=== PATIENT | female | born 1970 ===

== ENCOUNTER 2021-06-19 17:56 | Inpatient (IN) ==
[2021-06-19] MEDS ORDERED: ONDANSETRON 4 MG/2 ML VIAL IV STA (18:12)
[2021-06-19] MEDS ORDERED: HYDROmorphone 1 MG/1 ML SYRINGE IV STA (18:12)
[2021-06-19] MEDS ORDERED: SODIUM CHLORIDE 0.9% 1,000 ML IV STA ×2 (18:12→20:54)
[2021-06-19 18:58] LABS: Basophils # 0.1 10*3/uL (0.0-0.2); Basophils % 0.3 % (0.0-0.8); Eosinophils # 0.1 10*3/uL (0.0-0.87); Eosinophils % 0.3 % (0.00-10.9); Hematocrit 24.6 VOL% (35.7-47.0); Hemoglobin 7.4 GM/DL (12.0-16.0); Immature Granulocytes % 1.4 %; Lymphocytes # 1.2 10*3/uL (1.4-4.0); Lymphocytes % 5.8 % (21.3-54.2); Mean Corpuscular HGB Conc 30.1 GM/DL (32-36); Mean Corpuscular Volume 96.5 FL (87-102); Mean Platelet Volume 8.4 FL (9.6-12.0); Neutrophils % 87.2 % (38.7-73.9); Platelet Count 525 T/CUMM (130-400); Red Blood Count 2.55 MC/CUMM (3.8-5.5); Red Cell Distribution Width 15.4 % (9.3-17.3); White Blood Count 20.9 T/CUMM (4-12)
[2021-06-19 19:23] LABS: Lymphocytes 6 % (20-55); Platelet Estimate Increased; Segmented Neutrophils 89 % (50-85); Total Cells Counted 100
[2021-06-19 19:27] LABS: Alanine Aminotransferase 10 U/L (13-56); Albumin 2.1 G/DL (3.4-5.0); Alkaline Phosphatase 118 U/L (45-117); Aspartate Amino Transferase 14 U/L (0-37); Bilirubin,Total < 0.39 MG/DL (0.20-1.00); Blood Urea Nitrogen 104 MG/DL (7-18); Calcium 9.2 MG/DL (8.5-10.1); Carbon Dioxide 14 MMOL/L (21-32); Estimated Glom Filtration Rate 4 ML/MIN; Glucose 89 MG/DL (74-106); Osmolality,Calculated 291.8 MOS/KG (273-304); Potassium 5.7 MMOL/L (3.5-5.1); Sodium 130 MMOL/L (136-145); Total Protein 8.6 G/DL (6.4-8.2)
[2021-06-19] MEDS ORDERED: DEXTROSE 10% 250 ML BAG IV PRN (22:13)
[2021-06-19] MEDS ORDERED: ACETAMINOPHEN 325 MG TABLET PO PRN (22:13)
[2021-06-19] MEDS ORDERED: GLUCAGON 1 MG VIAL IM PRN (22:13)
[2021-06-19] MEDS ORDERED: hydrALAZINE 20 MG/1 ML VIAL IV PRN (22:13)
[2021-06-19] MEDS ORDERED: ONDANSETRON 4 MG/2 ML VIAL IV PRN (22:13)
[2021-06-19] MEDS: SODIUM POLYSTYRENE SULFATE 15 GM/60 ML BOTTLE PO SCH (23:05)
[2021-06-19 23:47] LABS: Mucus,Urine Occasional /LPF (Occasional); RBC,Urine 12 /HPF (0-4); Squamous Epithelial Cell,Urine Occasional /HPF (0-10); Urine Appearance SL CLOUDY (Clear); Urine Color Yellow (Yellow)
[2021-06-19 23:48] LABS: Bilirubin,Urine Negative (Negative); Blood, Urine Moderate mg/dL (Negative); Glucose,Urine (UA) Negative (Negative); Ketones,Urine Negative (Negative); Nitrite,Urine Negative (Negative); Protein,Urine 30 mg/dL (Negative); Urine Urobilinogen 0.2 eU/dL (<2.0)
[2021-06-20] MEDS ORDERED: VANCOMYCIN INJ 1,000 MG in SODIUM CHLORIDE 0.9% 250 ML IV PRN (00:30)
[2021-06-20] MEDS: SODIUM POLYSTYRENE SULFATE 15 GM/60 ML BOTTLE PO SCH (00:31)
[2021-06-20] MEDS: HYDROmorphone 1 MG/1 ML SYRINGE IV PRN ×2 (00:50→19:45)
[2021-06-20] MEDS: PIPERACILLIN/TAZOBACTAM 3,375 MG in SODIUM CHLORIDE 0.9% 100 ML IV SCH ×2 (00:59→13:40)
[2021-06-20 01:48] LABS: Basophils # 0.1 10*3/uL (0.0-0.2); Basophils % 0.3 % (0.0-0.8); Eosinophils # 0.1 10*3/uL (0.0-0.87); Eosinophils % 0.4 % (0.00-10.9); Hematocrit 23.1 VOL% (35.7-47.0); Immature Granulocytes % 1.6 %; Immature Granulocytes Absolute 0.29 #; Lymphocytes % 5.3 % (21.3-54.2); Mean Corpuscular HGB Conc 30.3 GM/DL (32-36); Mean Corpuscular Volume 96.7 FL (87-102); Mean Platelet Volume 8.3 FL (9.6-12.0); Monocytes % 5.9 % (1.7-12.7); Neutrophils % 86.5 % (38.7-73.9); Platelet Count 478 T/CUMM (130-400); Red Blood Count 2.39 MC/CUMM (3.8-5.5); Red Cell Distribution Width 15.5 % (9.3-17.3); White Blood Count 18.3 T/CUMM (4-12)
[2021-06-20] MEDS: SODIUM BICARB INJ 150 MEQ in DEXTROSE 5% 1,000 ML IV SCH (02:13)
[2021-06-20 02:37] LABS: Calcium 8.8 MG/DL (8.5-10.1); Osmolality,Calculated 304.8 MOS/KG (273-304)
[2021-06-20 02:48] LABS: Potassium 6.3 MMOL/L (3.5-5.1)
[2021-06-20] MEDS ORDERED: SODIUM ZIRCONIUM CYCLOSILICATE 10 GM PACK PO STA (03:15)
[2021-06-20] MEDS ORDERED: INSULIN REGULAR 10 UNIT, CALCIUM GLUCONATE 1,000 MG in DEXTROSE 10% 250 ML IV STA (03:15)
[2021-06-20] MEDS ORDERED: VANCOMYCIN INJ 1,000 MG in SODIUM CHLORIDE 0.9% 250 ML IV ONE (05:00)
[2021-06-20 09:19] LABS: Calcium 8.9 MG/DL (8.5-10.1); Osmolality,Calculated 305.7 MOS/KG (273-304); Potassium 4.5 MMOL/L (3.5-5.1)
[2021-06-20 10:07] LABS: INR 1.1
[2021-06-20] MEDS ORDERED: SODIUM CHLORIDE 0.9% 1,000 ML IV PRN (10:24)
[2021-06-20] MEDS ORDERED: DIAZEPAM 5 MG TABLET PO ONE (11:00)
[2021-06-20] MEDS: PANTOPRAZOLE 40 MG TABLET PO SCH (11:01)
[2021-06-20] MEDS ORDERED: MIDAZOLAM 2 MG/2 ML VIAL IV ONE (11:22)
[2021-06-20] MEDS: fentaNYL 100 MCG/2 ML VIAL IV ONE (12:02)
[2021-06-20] MEDS ORDERED: HEPARIN 5,000 UNIT/1 ML VIAL SUBCUT SCH (21:00)
[2021-06-20 21:08] LABS: Hematocrit 25.5 VOL% (35.7-47.0); Hemoglobin 8.2 GM/DL (12.0-16.0)
[2021-06-21] MEDS: SODIUM BICARB INJ 150 MEQ in DEXTROSE 5% 1,000 ML IV SCH ×4 (01:19→23:16)
[2021-06-21] MEDS: PIPERACILLIN/TAZOBACTAM 3,375 MG in SODIUM CHLORIDE 0.9% 100 ML IV SCH ×2 (01:19→12:39)
[2021-06-21] MEDS: HYDROmorphone 1 MG/1 ML SYRINGE IV PRN (03:27)
[2021-06-21 05:45] LABS: Basophils % 0.1 % (0.0-0.8); Eosinophils # 0.1 10*3/uL (0.0-0.87); Eosinophils % 0.4 % (0.00-10.9); Hematocrit 25.2 VOL% (35.7-47.0); Hemoglobin 8.1 GM/DL (12.0-16.0); Immature Granulocytes % 1.7 %; Immature Granulocytes Absolute 0.24 #; Lymphocytes # 0.7 10*3/uL (1.4-4.0); Lymphocytes % 5.2 % (21.3-54.2); Mean Corpuscular HGB Conc 32.1 GM/DL (32-36); Mean Corpuscular Volume 88.4 FL (87-102); Mean Platelet Volume 8.5 FL (9.6-12.0); Monocytes % 5.1 % (1.7-12.7); Neutrophils % 87.5 % (38.7-73.9); Platelet Count 453 T/CUMM (130-400); Red Blood Count 2.85 MC/CUMM (3.8-5.5); Red Cell Distribution Width 15.8 % (9.3-17.3); White Blood Count 14.3 T/CUMM (4-12)
[2021-06-21 06:03] LABS: Osmolality,Calculated 303.7 MOS/KG (273-304); Potassium 3.6 MMOL/L (3.5-5.1)
[2021-06-21] MEDS: PANTOPRAZOLE 40 MG TABLET PO SCH (09:18)
[2021-06-21] MEDS ORDERED: PROMETHAZINE INJ 25 MG in SODIUM CHLORIDE 0.9% 50 ML IV PRN (20:44)
[2021-06-21] MEDS: LACTULOSE 20 GM/30 ML UDCUP PO PRN (20:51)
[2021-06-22] MEDS: PIPERACILLIN/TAZOBACTAM 3,375 MG in SODIUM CHLORIDE 0.9% 100 ML IV SCH ×2 (00:37→17:05)
[2021-06-22 04:40] LABS: Basophils % 0.3 % (0.0-0.8); Eosinophils # 0.1 10*3/uL (0.0-0.87); Eosinophils % 0.6 % (0.00-10.9); Hematocrit 27.4 VOL% (35.7-47.0); Hemoglobin 8.7 GM/DL (12.0-16.0); Immature Granulocytes % 1.3 %; Immature Granulocytes Absolute 0.18 #; Lymphocytes # 1.4 10*3/uL (1.4-4.0); Lymphocytes % 10.3 % (21.3-54.2); Mean Corpuscular HGB Conc 31.8 GM/DL (32-36); Mean Corpuscular Volume 87.5 FL (87-102); Mean Platelet Volume 8.2 FL (9.6-12.0); Monocytes % 7.3 % (1.7-12.7); Neutrophils % 80.2 % (38.7-73.9); Platelet Count 486 T/CUMM (130-400); Red Blood Count 3.13 MC/CUMM (3.8-5.5); Red Cell Distribution Width 15.8 % (9.3-17.3); White Blood Count 13.9 T/CUMM (4-12)
[2021-06-22 05:04] LABS: Calcium 8.5 MG/DL (8.5-10.1); Osmolality,Calculated 296.4 MOS/KG (273-304); Potassium 2.7 MMOL/L (3.5-5.1)
[2021-06-22] MEDS: HYDROmorphone 1 MG/1 ML SYRINGE IV PRN ×4 (05:19→23:01)
[2021-06-22] MEDS ORDERED: POTASSIUM CHLORIDE 20 MEQ TABLET PO PRN (08:01)
[2021-06-22] MEDS ORDERED: POTASSIUM CHLORIDE 20 MEQ TABLET PO ONE ×2 (08:06→10:05)
[2021-06-22] MEDS: PANTOPRAZOLE 40 MG TABLET PO SCH (08:58)
[2021-06-22] MEDS: SODIUM CHLORIDE 0.45% 1,000 ML IV SCH ×2 (10:41→23:48)
[2021-06-23] MEDS: PIPERACILLIN/TAZOBACTAM 3,375 MG in SODIUM CHLORIDE 0.9% 100 ML IV SCH ×2 (02:00→12:32)
[2021-06-23] MEDS: LACTULOSE 20 GM/30 ML UDCUP PO PRN ×2 (02:51→08:43)
[2021-06-23] MEDS: HYDROmorphone 1 MG/1 ML SYRINGE IV PRN (03:42)
[2021-06-23 05:14] LABS: Basophils % 0.2 % (0.0-0.8); Hematocrit 26.2 VOL% (35.7-47.0); Hemoglobin 8.2 GM/DL (12.0-16.0); Immature Granulocytes Absolute 0.22 #; Lymphocytes # 0.9 10*3/uL (1.4-4.0); Lymphocytes % 4.3 % (21.3-54.2); Mean Corpuscular HGB Conc 31.3 GM/DL (32-36); Mean Corpuscular Volume 90.7 FL (87-102); Mean Platelet Volume 8.3 FL (9.6-12.0); Monocytes % 3.4 % (1.7-12.7); Neutrophils % 91.1 % (38.7-73.9); Platelet Count 452 T/CUMM (130-400); Red Blood Count 2.89 MC/CUMM (3.8-5.5); Red Cell Distribution Width 15.9 % (9.3-17.3); White Blood Count 21.1 T/CUMM (4-12)
[2021-06-23 05:36] LABS: Hypochromia 1+; Lymphocytes 3 % (20-55); Segmented Neutrophils 93 % (50-85); Total Cells Counted 100
[2021-06-23 05:37] LABS: Microcytosis 1+
[2021-06-23 05:42] LABS: Calcium 8.6 MG/DL (8.5-10.1); Osmolality,Calculated 287.8 MOS/KG (273-304); Potassium 3.1 MMOL/L (3.5-5.1)
[2021-06-23] MEDS: PANTOPRAZOLE 40 MG TABLET PO SCH (08:43)
[2021-06-23] MEDS: SODIUM CHLORIDE 0.45% 1,000 ML IV SCH ×2 (17:20)
[2021-06-24] MEDS: SODIUM CHLORIDE 0.45% 1,000 ML IV SCH ×3 (02:56→22:41)
[2021-06-24] MEDS: HYDROmorphone 1 MG/1 ML SYRINGE IV PRN ×3 (02:58→10:30)
[2021-06-24 07:18] LABS: Basophils % 0.3 % (0.0-0.8); Calcium 8.4 MG/DL (8.5-10.1); Eosinophils # 0.1 10*3/uL (0.0-0.87); Eosinophils % 0.9 % (0.00-10.9); Hematocrit 25.6 VOL% (35.7-47.0); Hemoglobin 7.9 GM/DL (12.0-16.0); Immature Granulocytes % 1.8 %; Immature Granulocytes Absolute 0.27 #; Lymphocytes % 13.4 % (21.3-54.2); Mean Corpuscular HGB Conc 30.9 GM/DL (32-36); Mean Corpuscular Volume 91.1 FL (87-102); Mean Platelet Volume 8.6 FL (9.6-12.0); Monocytes % 6.9 % (1.7-12.7); Neutrophils % 76.7 % (38.7-73.9); Osmolality,Calculated 287.3 MOS/KG (273-304); Platelet Count 419 T/CUMM (130-400); Potassium 3.1 MMOL/L (3.5-5.1); Red Blood Count 2.81 MC/CUMM (3.8-5.5); Red Cell Distribution Width 15.4 % (9.3-17.3)
[2021-06-24] MEDS: PANTOPRAZOLE 40 MG TABLET PO SCH (08:44)
[2021-06-25] MEDS: HYDROmorphone 1 MG/1 ML SYRINGE IV PRN ×2 (01:08→13:42)
[2021-06-25 05:45] LABS: Basophils # 0.1 10*3/uL (0.0-0.2); Basophils % 0.4 % (0.0-0.8); Eosinophils # 0.3 10*3/uL (0.0-0.87); Eosinophils % 1.4 % (0.00-10.9); Hematocrit 29.8 VOL% (35.7-47.0); Immature Granulocytes % 1.9 %; Immature Granulocytes Absolute 0.35 #; Lymphocytes # 3.2 10*3/uL (1.4-4.0); Lymphocytes % 17.4 % (21.3-54.2); Mean Corpuscular HGB Conc 30.2 GM/DL (32-36); Mean Corpuscular Volume 93.1 FL (87-102); Mean Platelet Volume 8.3 FL (9.6-12.0); Monocytes % 5.8 % (1.7-12.7); Neutrophils % 73.1 % (38.7-73.9); Platelet Count 495 T/CUMM (130-400); White Blood Count 18.5 T/CUMM (4-12)
[2021-06-25 06:00] LABS: Calcium 9.1 MG/DL (8.5-10.1); Osmolality,Calculated 278.7 MOS/KG (273-304); Potassium 2.8 MMOL/L (3.5-5.1)
[2021-06-25] MEDS ORDERED: cefTRIAXone 1,000 MG in SODIUM CHLORIDE 0.9% 100 ML IV ONE (06:00)
[2021-06-25] MEDS: POTASSIUM CHLORIDE RIDER 10 MEQ/100 ML PREMIX IV SCH ×3 (09:00→16:35)
[2021-06-25] MEDS ORDERED: POTASSIUM CHLORIDE 20 MEQ TABLET PO SCH (09:00)
[2021-06-25] MEDS: SODIUM CHLORIDE 0.45% 1,000 ML IV SCH (10:43)
[2021-06-25] MEDS: PANTOPRAZOLE 40 MG TABLET PO SCH (10:49)
[2021-06-25] MEDS ORDERED: LIDOCAINE 2% TOP JELLY 20 ML VIAL INTRAURETH ONE (13:31)
[2021-06-25] MEDS ORDERED: DOXYCYCLINE HYCLATE 100 MG CAPSULE PO SCH (21:00)
[2021-06-26] MEDS: SODIUM CHLORIDE 0.45% 1,000 ML IV SCH ×2 (01:20→12:10)
[2021-06-26] MEDS: HYDROmorphone 1 MG/1 ML SYRINGE IV PRN ×2 (02:35→06:42)
[2021-06-26 06:42] LABS: Basophils % 0.3 % (0.0-0.8); Eosinophils # 0.2 10*3/uL (0.0-0.87); Eosinophils % 1.8 % (0.00-10.9); Hematocrit 26.3 VOL% (35.7-47.0); Hemoglobin 7.9 GM/DL (12.0-16.0); Immature Granulocytes % 1.7 %; Immature Granulocytes Absolute 0.22 #; Lymphocytes # 1.6 10*3/uL (1.4-4.0); Lymphocytes % 12.6 % (21.3-54.2); Mean Corpuscular Volume 94.9 FL (87-102); Mean Platelet Volume 8.9 FL (9.6-12.0); Monocytes % 6.7 % (1.7-12.7); Neutrophils % 76.9 % (38.7-73.9); Platelet Count 373 T/CUMM (130-400); Red Blood Count 2.77 MC/CUMM (3.8-5.5); Red Cell Distribution Width 14.9 % (9.3-17.3)
[2021-06-26 07:00] LABS: Calcium 8.5 MG/DL (8.5-10.1); Osmolality,Calculated 283.4 MOS/KG (273-304); Potassium 2.9 MMOL/L (3.5-5.1)
[2021-06-26] MEDS ORDERED: amLODIPine 5 MG TABLET PO SCH (09:00)
[2021-06-26] MEDS: DOXYCYCLINE HYCLATE 100 MG CAPSULE PO SCH ×2 (09:00→17:05)
[2021-06-26] MEDS: POTASSIUM CHLORIDE 20 MEQ TABLET PO SCH ×3 (09:01→13:04)
[2021-06-26] MEDS: PANTOPRAZOLE 40 MG TABLET PO SCH (09:01)
[2021-06-26] MEDS ORDERED: MAGNESIUM SULF RIDER 2 GM/50 ML PREMIX IV ONE (12:30)
[2021-06-26 15:19] LABS: Calcium 8.3 MG/DL (8.5-10.1); Osmolality,Calculated 280.5 MOS/KG (273-304); Potassium 4.4 MMOL/L (3.5-5.1)
[2021-06-26 16:44] VITALS: BP 133/70
== END 2021-06-26 17:48 | disposition home or self-care (01) | DRG 844 ==
LOC: EDBD → EDUNIT# → N.ED 17:56 → SUATTDRO 22:13 → N.EDINP 22:13 → N.3E 22:53
PROVIDERS: ADMIT Hospitalist; ATTEND Family Medicine

== ENCOUNTER 2021-06-28 00:34 | Observation (INO) ==
[2021-06-28] MEDS ORDERED: GLUCAGON 1 MG VIAL IM PRN (01:30)
[2021-06-28] MEDS ORDERED: MAGNESIUM SULF RIDER 4 GM/100 ML PREMIX IV PRN (01:33)
[2021-06-28] MEDS ORDERED: ACETAMINOPHEN 325 MG TABLET PO PRN (01:33)
[2021-06-28] MEDS ORDERED: POTASSIUM CHLORIDE RIDER 10 MEQ/100 ML PREMIX IV PRN (01:33)
[2021-06-28] MEDS ORDERED: MAGNESIUM SULF RIDER 2 GM/50 ML PREMIX IV PRN (01:33)
[2021-06-28] MEDS ORDERED: ALUMINUM/MAGNES/SIMETH MAX STR 30 ML UDCUP PO PRN (01:33)
[2021-06-28] MEDS ORDERED: ONDANSETRON 4 MG/2 ML VIAL IV PRN (01:33)
[2021-06-28] MEDS ORDERED: POTASSIUM CHLORIDE 20 MEQ TABLET PO PRN (01:33)
[2021-06-28 01:34] LABS: Basophils # 0.1 10*3/uL (0.0-0.2); Basophils % 0.4 % (0.0-0.8); Eosinophils # 0.2 10*3/uL (0.0-0.87); Eosinophils % 1.2 % (0.00-10.9); Hematocrit 27.9 VOL% (35.7-47.0); Hemoglobin 8.3 GM/DL (12.0-16.0); Immature Granulocytes Absolute 0.32 #; Lymphocytes # 1.7 10*3/uL (1.4-4.0); Lymphocytes % 10.2 % (21.3-54.2); Mean Corpuscular HGB Conc 29.7 GM/DL (32-36); Mean Corpuscular Volume 94.9 FL (87-102); Mean Platelet Volume 8.7 FL (9.6-12.0); Monocytes % 6.8 % (1.7-12.7); Neutrophils % 79.4 % (38.7-73.9); Platelet Count 417 T/CUMM (130-400); Red Blood Count 2.94 MC/CUMM (3.8-5.5); Red Cell Distribution Width 15.4 % (9.3-17.3); White Blood Count 16.2 T/CUMM (4-12)
[2021-06-28] MEDS ORDERED: DEXTROSE 10% 250 ML BAG IV PRN (01:43)
[2021-06-28 01:53] LABS: Alanine Aminotransferase 33 U/L (13-56); Albumin 2.2 G/DL (3.4-5.0); Alkaline Phosphatase 118 U/L (45-117); Aspartate Amino Transferase 59 U/L (0-37); Bilirubin,Total < 0.39 MG/DL (0.20-1.00); Blood Urea Nitrogen 23 MG/DL (7-18); Carbon Dioxide 24 MMOL/L (21-32); Estimated Glom Filtration Rate 26 ML/MIN; Glucose 112 MG/DL (74-106); Osmolality,Calculated 281.5 MOS/KG (273-304); Sodium 139 MMOL/L (136-145); Total Protein 8.8 G/DL (6.4-8.2)
[2021-06-28 02:02] LABS: INR 1.1; PT Patient Result 11.8 SECS (10.5-12.0); Partial Thromboplastin Time 31.7 SECS (23.8-32.1)
[2021-06-28] MEDS ORDERED: DOXYCYCLINE HYCLATE 100 MG CAPSULE PO SCH (08:00)
[2021-06-28] MEDS ORDERED: DOCUSATE SODIUM 100 MG CAPSULE PO SCH (09:00)
[2021-06-28] MEDS ORDERED: PANTOPRAZOLE 40 MG TABLET PO SCH (09:00)
[2021-06-28] MEDS ORDERED: amLODIPine 5 MG TABLET PO SCH (09:00)
[2021-06-28] MEDS: INSULIN REGULAR 100 UNIT/ML SUBCUT SCH ×2 (09:27→11:58)
[2021-06-28] MEDS ORDERED: LEVOFLOXACIN INJ 500 MG/100 ML PREMIX IV ONE (09:54)
[2021-06-28] MEDS ORDERED: DIAZEPAM 5 MG TABLET PO ONE (09:54)
[2021-06-28] MEDS ORDERED: fentaNYL 100 MCG/2 ML VIAL IV ONE (09:54)
[2021-06-28] MEDS ORDERED: MIDAZOLAM 2 MG/2 ML VIAL IV ONE (09:54)
[2021-06-28] MEDS ORDERED: SODIUM CHLORIDE 0.45% 1,000 ML IV SCH (10:00)
[2021-06-28 16:34] VITALS: BP 139/82
== END 2021-06-28 17:26 | disposition home or self-care (01) ==
LOC: N.5E 00:34 → N.ED 00:34 → N.5E 02:10
PROVIDERS: ADMIT Hospitalist; ATTEND Hospitalist

== ENCOUNTER 2022-01-31 17:07 | Inpatient (IN) ==
[2022-01-31 20:45] LABS: Basophils % 0.2 % (0.0-0.8); Eosinophils % 0.1 % (0.00-10.9); Hematocrit 29.3 VOL% (35.7-47.0); Hemoglobin 8.9 GM/DL (12.0-16.0); Immature Granulocytes % 2.2 %; Immature Granulocytes Absolute 0.37 #; Lymphocytes % 5.8 % (21.3-54.2); Mean Corpuscular HGB Conc 30.4 GM/DL (32-36); Mean Corpuscular Volume 83.5 FL (87-102); Mean Platelet Volume 9.1 FL (9.6-12.0); Monocytes # 2.1 10*3/uL (0.11-0.8); Neutrophils % 79.7 % (38.7-73.9); Platelet Count 542 T/CUMM (130-400); Red Blood Count 3.51 MC/CUMM (3.8-5.5); Red Cell Distribution Width 17.2 % (9.3-17.3); White Blood Count 17.1 T/CUMM (4-12)
[2022-01-31 21:04] LABS: Albumin 1.7 G/DL (3.4-5.0); Bilirubin,Total 0.6 MG/DL (0.20-1.00); Calcium 7.4 MG/DL (8.5-10.1); Osmolality,Calculated 289.7 MOS/KG (273-304); Potassium 5.5 MMOL/L (3.5-5.1); Total Protein 6.7 G/DL (6.4-8.2)
[2022-01-31 21:32] LABS: Band Neutrophils 13 % (0-10); Lymphocytes 7 % (20-55); Metamyelocytes 1 %; Nucleated Red Blood Cells 1 /100 WBC (0-5); Total Cells Counted 100
[2022-01-31 21:33] LABS: Hypochromia Slight; Platelet Estimate Increased
[2022-01-31 22:10] LABS: Bacteria,Urine Moderate /HPF (Few); Bilirubin,Urine Negative (Negative); Blood, Urine Negative (Negative); Glucose,Urine (UA) Negative (Negative); Ketones,Urine 5 mg/dL (Negative); Mucus,Urine Occasional /LPF (Occasional); Nitrite,Urine Negative (Negative); Protein,Urine 30 mg/dL (Negative); Squamous Epithelial Cell,Urine Occasional /HPF (0-10); Urine Appearance Slightly Hazy (Clear); Urine Color Amber (Yellow); Urine Specific Gravity 1.014 (1.001-1.035)
[2022-01-31] MEDS ORDERED: SODIUM CHLORIDE 0.9% 500 ML IV STA (22:16)
[2022-01-31] MEDS ORDERED: VANCOMYCIN INJ 750 MG in SODIUM CHLORIDE 0.9% 250 ML IV STA (23:39)
[2022-01-31] MEDS ORDERED: PIPERACILLIN/TAZOBACTAM 3,375 MG in SODIUM CHLORIDE 0.9% 100 ML IV STA (23:39)
[2022-01-31] MEDS ORDERED: VANCOMYCIN 1,000 MG VIAL ONE (23:47)
[2022-01-31] MEDS ORDERED: hydrALAZINE 20 MG/1 ML VIAL IV PRN (23:52)
[2022-01-31] MEDS ORDERED: NICOTINE 21 MG/24 HR PATCH TRANSDERM PRN (23:52)
[2022-01-31] MEDS ORDERED: ONDANSETRON 4 MG/2 ML VIAL IV PRN (23:52)
[2022-01-31] MEDS ORDERED: PROMETHAZINE 25 MG/1 ML VIAL IM PRN (23:52)
[2022-01-31] MEDS ORDERED: SODIUM ZIRCONIUM CYCLOSILICATE 10 GM PACK PO ONE (23:53)
[2022-02-01] MEDS ORDERED: VANCOMYCIN INJ 1,500 MG in SODIUM CHLORIDE 0.9% 500 ML IV STA (00:05)
[2022-02-01] MEDS ORDERED: VANCOMYCIN INJ 750 MG in SODIUM CHLORIDE 0.9% 250 ML IV PRN (00:10)
[2022-02-01] MEDS: MORPHINE 2 MG/1 ML SYRINGE IV PRN ×5 (00:42→22:01)
[2022-02-01] MEDS: DEXTROSE 5% NACL 0.9% 1,000 ML IV SCH (03:17)
[2022-02-01 05:30] LABS: Calcium 6.9 MG/DL (8.5-10.1); Potassium 4.9 MMOL/L (3.5-5.1)
[2022-02-01 07:48] LABS: Basophils % 0.1 % (0.0-0.8); Eosinophils % 0.3 % (0.00-10.9); Hematocrit 24.7 VOL% (35.7-47.0); Hemoglobin 7.4 GM/DL (12.0-16.0); Immature Granulocytes % 2.2 %; Lymphocytes # 1.1 10*3/uL (1.4-4.0); Lymphocytes % 8.1 % (21.3-54.2); Mean Corpuscular Volume 86.1 FL (87-102); Mean Platelet Volume 9.6 FL (9.6-12.0); Monocytes # 1.8 10*3/uL (0.11-0.8); Neutrophils % 76.3 % (38.7-73.9); Platelet Count 420 T/CUMM (130-400); Red Blood Count 2.87 MC/CUMM (3.8-5.5); Red Cell Distribution Width 17.3 % (9.3-17.3); White Blood Count 13.7 T/CUMM (4-12)
[2022-02-01 08:32] LABS: Band Neutrophils 8 % (0-10); Eosinophils 1 % (0-10); Hypochromia Slight; Lymphocytes 8 % (20-55); Total Cells Counted 100
[2022-02-01 08:33] LABS: Microcytosis Slight
[2022-02-01] MEDS: PIPERACILLIN/TAZOBACTAM 3,375 MG in SODIUM CHLORIDE 0.9% 100 ML IV SCH ×2 (08:50→17:14)
[2022-02-01] MEDS ORDERED: SODIUM CHLORIDE 0.9% 1,000 ML IV PRN (11:18)
[2022-02-01 13:15] LABS: % Iron Saturation 17.7 % (18-50)
[2022-02-01 13:28] LABS: Folate 6.41 NG/ML (5.38-24.0)
[2022-02-02] MEDS: VANCOMYCIN INJ 750 MG in SODIUM CHLORIDE 0.9% 250 ML IV SCH (00:20)
[2022-02-02] MEDS: PIPERACILLIN/TAZOBACTAM 3,375 MG in SODIUM CHLORIDE 0.9% 100 ML IV SCH ×3 (00:20→15:54)
[2022-02-02] MEDS: DEXTROSE 5% NACL 0.9% 1,000 ML IV SCH ×3 (00:20→16:09)
[2022-02-02] MEDS: MORPHINE 2 MG/1 ML SYRINGE IV PRN ×3 (03:42→12:41)
[2022-02-02 05:53] LABS: Basophils % 0.2 % (0.0-0.8); Eosinophils # 0.1 10*3/uL (0.0-0.87); Eosinophils % 0.3 % (0.00-10.9); Hematocrit 27.4 VOL% (35.7-47.0); Hemoglobin 8.5 GM/DL (12.0-16.0); Immature Granulocytes Absolute 0.44 #; Lymphocytes # 1.1 10*3/uL (1.4-4.0); Lymphocytes % 7.7 % (21.3-54.2); Mean Corpuscular Volume 87.5 FL (87-102); Mean Platelet Volume 8.8 FL (9.6-12.0); Monocytes # 1.7 10*3/uL (0.11-0.8); Monocytes % 11.9 % (1.7-12.7); Neutrophils % 76.9 % (38.7-73.9); Platelet Count 356 T/CUMM (130-400); Red Blood Count 3.13 MC/CUMM (3.8-5.5); Red Cell Distribution Width 16.9 % (9.3-17.3); White Blood Count 14.6 T/CUMM (4-12)
[2022-02-02 06:23] LABS: Calcium 7.4 MG/DL (8.5-10.1); Osmolality,Calculated 296.3 MOS/KG (273-304); Potassium 3.8 MMOL/L (3.5-5.1)
[2022-02-02 07:39] LABS: Band Neutrophils 7 % (0-10); Eosinophils 1 % (0-10); Hypochromia Slight; Lymphocytes 9 % (20-55); Polychromasia Slight; Total Cells Counted 100
[2022-02-02 07:40] LABS: Microcytosis 1+; Platelet Estimate Normal
[2022-02-02] MEDS: FERRIC GLUCONATE COMPLEX 125 MG in SODIUM CHLORIDE 0.9% 100 ML IV SCH (08:48)
[2022-02-02] MEDS: CHOLECALCIFEROL 400 UNIT TABLET PO SCH (08:49)
[2022-02-03] MEDS: PIPERACILLIN/TAZOBACTAM 3,375 MG in SODIUM CHLORIDE 0.9% 100 ML IV SCH ×3 (00:50→15:27)
[2022-02-03] MEDS: VANCOMYCIN INJ 750 MG in SODIUM CHLORIDE 0.9% 250 ML IV SCH (00:50)
[2022-02-03] MEDS: MORPHINE 2 MG/1 ML SYRINGE IV PRN (00:59)
[2022-02-03] MEDS: DEXTROSE 5% NACL 0.9% 1,000 ML IV SCH (05:12)
[2022-02-03 06:11] LABS: Basophils % 0.1 % (0.0-0.8); Eosinophils # 0.1 10*3/uL (0.0-0.87); Eosinophils % 0.6 % (0.00-10.9); Hematocrit 27.2 VOL% (35.7-47.0); Hemoglobin 8.2 GM/DL (12.0-16.0); Immature Granulocytes % 3.1 %; Immature Granulocytes Absolute 0.51 #; Lymphocytes # 1.3 10*3/uL (1.4-4.0); Lymphocytes % 7.7 % (21.3-54.2); Mean Corpuscular HGB Conc 30.1 GM/DL (32-36); Mean Corpuscular Volume 89.5 FL (87-102); Monocytes # 1.7 10*3/uL (0.11-0.8); Neutrophils % 78.5 % (38.7-73.9); Platelet Count 339 T/CUMM (130-400); Red Blood Count 3.04 MC/CUMM (3.8-5.5); Red Cell Distribution Width 17.3 % (9.3-17.3); White Blood Count 16.7 T/CUMM (4-12)
[2022-02-03 06:39] LABS: Band Neutrophils 2 % (0-10); Eosinophils 2 % (0-10); Lymphocytes 5 % (20-55); Total Cells Counted 100
[2022-02-03 06:40] LABS: Hypochromia Slight; Microcytosis Slight; Platelet Estimate Adequate
[2022-02-03 06:53] LABS: Calcium 7.6 MG/DL (8.5-10.1); Osmolality,Calculated 299.7 MOS/KG (273-304)
[2022-02-03] MEDS: FERRIC GLUCONATE COMPLEX 125 MG in SODIUM CHLORIDE 0.9% 100 ML IV SCH (08:55)
[2022-02-03] MEDS: CHOLECALCIFEROL 400 UNIT TABLET PO SCH (10:17)
[2022-02-03] MEDS: ACETAMINOPHEN 325 MG TABLET PO PRN (19:18)
[2022-02-04] MEDS: PIPERACILLIN/TAZOBACTAM 3,375 MG in SODIUM CHLORIDE 0.9% 100 ML IV SCH ×3 (00:27→20:22)
[2022-02-04] MEDS: DEXTROSE 5% NACL 0.9% 1,000 ML IV SCH ×3 (00:27→20:22)
[2022-02-04] MEDS: ACETAMINOPHEN 325 MG TABLET PO PRN (04:36)
[2022-02-04 05:15] LABS: Basophils % 0.2 % (0.0-0.8); Eosinophils # 0.1 10*3/uL (0.0-0.87); Eosinophils % 0.6 % (0.00-10.9); Hematocrit 28.3 VOL% (35.7-47.0); Hemoglobin 8.3 GM/DL (12.0-16.0); Immature Granulocytes % 1.8 %; Immature Granulocytes Absolute 0.33 #; Lymphocytes # 1.2 10*3/uL (1.4-4.0); Lymphocytes % 6.4 % (21.3-54.2); Mean Corpuscular HGB Conc 29.3 GM/DL (32-36); Mean Platelet Volume 8.9 FL (9.6-12.0); Monocytes # 1.4 10*3/uL (0.11-0.8); Monocytes % 7.6 % (1.7-12.7); Neutrophils % 83.4 % (38.7-73.9); Platelet Count 342 T/CUMM (130-400); Red Blood Count 3.11 MC/CUMM (3.8-5.5); Red Cell Distribution Width 17.6 % (9.3-17.3); White Blood Count 18.1 T/CUMM (4-12)
[2022-02-04 05:36] LABS: Calcium 7.8 MG/DL (8.5-10.1); Osmolality,Calculated 293.8 MOS/KG (273-304); Potassium 4.1 MMOL/L (3.5-5.1)
[2022-02-04 05:40] LABS: Band Neutrophils 35 % (0-10); Eosinophils 1 % (0-10); Lymphocytes 6 % (20-55); Platelet Estimate Normal; Total Cells Counted 100
[2022-02-04 05:41] LABS: Anisocytosis 1+; Burr Cells Few
[2022-02-04] MEDS: FERRIC GLUCONATE COMPLEX 125 MG in SODIUM CHLORIDE 0.9% 100 ML IV SCH (09:02)
[2022-02-04] MEDS: CHOLECALCIFEROL 400 UNIT TABLET PO SCH (09:03)
[2022-02-04] MEDS: MORPHINE 2 MG/1 ML SYRINGE IV PRN (18:44)
[2022-02-05] MEDS: MORPHINE 2 MG/1 ML SYRINGE IV PRN ×3 (00:24→11:41)
[2022-02-05] MEDS: PIPERACILLIN/TAZOBACTAM 3,375 MG in SODIUM CHLORIDE 0.9% 100 ML IV SCH ×3 (04:04→21:52)
[2022-02-05 05:25] LABS: Basophils % 0.2 % (0.0-0.8); Eosinophils # 0.1 10*3/uL (0.0-0.87); Eosinophils % 0.5 % (0.00-10.9); Hematocrit 28.2 VOL% (35.7-47.0); Hemoglobin 8.4 GM/DL (12.0-16.0); Immature Granulocytes % 1.3 %; Immature Granulocytes Absolute 0.24 #; Lymphocytes # 0.9 10*3/uL (1.4-4.0); Lymphocytes % 4.7 % (21.3-54.2); Mean Corpuscular HGB Conc 29.8 GM/DL (32-36); Mean Corpuscular Volume 91.3 FL (87-102); Monocytes # 1.5 10*3/uL (0.11-0.8); Monocytes % 7.7 % (1.7-12.7); Neutrophils % 85.6 % (38.7-73.9); Platelet Count 353 T/CUMM (130-400); Red Blood Count 3.09 MC/CUMM (3.8-5.5); Red Cell Distribution Width 17.8 % (9.3-17.3); White Blood Count 18.8 T/CUMM (4-12)
[2022-02-05 05:40] LABS: Osmolality,Calculated 297.6 MOS/KG (273-304); Potassium 4.2 MMOL/L (3.5-5.1)
[2022-02-05 05:56] LABS: Band Neutrophils 1 % (0-10); Hypochromia Slight; Lymphocytes 3 % (20-55); Microcytosis Slight; Platelet Estimate Adequate; Total Cells Counted 100
[2022-02-05] MEDS: FERRIC GLUCONATE COMPLEX 125 MG in SODIUM CHLORIDE 0.9% 100 ML IV SCH (10:01)
[2022-02-05] MEDS: CHOLECALCIFEROL 400 UNIT TABLET PO SCH (10:01)
[2022-02-05] MEDS: DEXTROSE 5% NACL 0.9% 1,000 ML IV SCH ×2 (10:03→11:41)
[2022-02-05] MEDS: DEXTROSE 5% 1,000 ML IV SCH (13:28)
[2022-02-06] MEDS: DEXTROSE 5% 1,000 ML IV SCH ×2 (00:58→13:36)
[2022-02-06] MEDS: PIPERACILLIN/TAZOBACTAM 3,375 MG in SODIUM CHLORIDE 0.9% 100 ML IV SCH ×3 (05:02→20:15)
[2022-02-06 06:02] LABS: Basophils % 0.1 % (0.0-0.8); Eosinophils # 0.1 10*3/uL (0.0-0.87); Eosinophils % 0.9 % (0.00-10.9); Hematocrit 26.3 VOL% (35.7-47.0); Immature Granulocytes Absolute 0.14 #; Lymphocytes % 7.3 % (21.3-54.2); Mean Corpuscular HGB Conc 30.4 GM/DL (32-36); Mean Corpuscular Volume 91.3 FL (87-102); Mean Platelet Volume 8.8 FL (9.6-12.0); Monocytes # 1.4 10*3/uL (0.11-0.8); Monocytes % 10.4 % (1.7-12.7); Neutrophils % 80.3 % (38.7-73.9); Platelet Count 321 T/CUMM (130-400); Red Blood Count 2.88 MC/CUMM (3.8-5.5); White Blood Count 13.7 T/CUMM (4-12)
[2022-02-06 06:26] LABS: Calcium 8.1 MG/DL (8.5-10.1); Osmolality,Calculated 286.1 MOS/KG (273-304); Potassium 4.3 MMOL/L (3.5-5.1)
[2022-02-06 06:28] LABS: Eosinophils 2 % (0-10); Hypochromia 1+; Lymphocytes 7 % (20-55); Microcytosis 1+; Platelet Estimate Adequate; Total Cells Counted 100
[2022-02-06] MEDS ORDERED: LIDOCAINE 2% 5 ML VIAL ONE (06:31)
[2022-02-06] MEDS ORDERED: propofoL 200 MG/20 ML VIAL IV ONE (06:31)
[2022-02-06] MEDS ORDERED: MIDAZOLAM 2 MG/2 ML VIAL ONE (06:31)
[2022-02-06] MEDS ORDERED: fentaNYL 100 MCG/2 ML VIAL ONE (06:31)
[2022-02-06] MEDS ORDERED: TISSUE ADHESIVE 1 EACH APPLICATOR TOP ONE (06:36)
[2022-02-06] MEDS ORDERED: BUPIVACAINE MPF 0.25% 10 ML VIAL ONE (06:36)
[2022-02-06] MEDS ORDERED: SUCCINYLCHOLINE 200 MG/10 ML VIAL ONE (07:54)
[2022-02-06] MEDS ORDERED: ROCURONIUM 50 MG/5 ML VIAL IV ONE (07:54)
[2022-02-06] MEDS ORDERED: SEVOFLURANE 1 UNIT/15 MINUTE INH ONE (07:54)
[2022-02-06] MEDS ORDERED: ONDANSETRON 4 MG/2 ML VIAL ONE (07:55)
[2022-02-06] MEDS ORDERED: DEXAMETHASONE 4 MG/1 ML VIAL ONE (07:55)
[2022-02-06] MEDS: CHOLECALCIFEROL 400 UNIT TABLET PO SCH (13:33)
[2022-02-06] MEDS: HYDROmorphone 1 MG/1 ML SYRINGE IV PRN (18:03)
[2022-02-07] MEDS: PIPERACILLIN/TAZOBACTAM 3,375 MG in SODIUM CHLORIDE 0.9% 100 ML IV SCH ×3 (04:15→21:06)
[2022-02-07 05:42] LABS: Basophils % 0.1 % (0.0-0.8); Eosinophils # 0.1 10*3/uL (0.0-0.87); Eosinophils % 0.7 % (0.00-10.9); Hematocrit 26.7 VOL% (35.7-47.0); Hemoglobin 7.9 GM/DL (12.0-16.0); Immature Granulocytes Absolute 0.11 #; Lymphocytes # 1.1 10*3/uL (1.4-4.0); Lymphocytes % 10.6 % (21.3-54.2); Mean Corpuscular HGB Conc 29.6 GM/DL (32-36); Mean Corpuscular Volume 91.4 FL (87-102); Monocytes # 1.5 10*3/uL (0.11-0.8); Monocytes % 13.9 % (1.7-12.7); Neutrophils % 73.7 % (38.7-73.9); Platelet Count 378 T/CUMM (130-400); Red Blood Count 2.92 MC/CUMM (3.8-5.5); Red Cell Distribution Width 18.2 % (9.3-17.3); White Blood Count 10.6 T/CUMM (4-12)
[2022-02-07 06:01] LABS: Calcium 8.4 MG/DL (8.5-10.1); Osmolality,Calculated 290.8 MOS/KG (273-304); Potassium 4.4 MMOL/L (3.5-5.1)
[2022-02-07 06:05] LABS: Platelet Estimate Normal
[2022-02-07] MEDS: HYDROmorphone 1 MG/1 ML SYRINGE IV PRN ×2 (07:48→12:18)
[2022-02-07] MEDS: CHOLECALCIFEROL 400 UNIT TABLET PO SCH (10:01)
[2022-02-07] MEDS: DEXTROSE 5% 1,000 ML IV SCH ×3 (10:02→23:22)
[2022-02-07] MEDS: MORPHINE 2 MG/1 ML SYRINGE IV PRN (21:07)
[2022-02-08] MEDS: MORPHINE 2 MG/1 ML SYRINGE IV PRN (04:48)
[2022-02-08] MEDS: PIPERACILLIN/TAZOBACTAM 3,375 MG in SODIUM CHLORIDE 0.9% 100 ML IV SCH ×2 (04:48→12:09)
[2022-02-08 05:45] LABS: Basophils % 0.1 % (0.0-0.8); Eosinophils # 0.1 10*3/uL (0.0-0.87); Eosinophils % 0.6 % (0.00-10.9); Hematocrit 24.7 VOL% (35.7-47.0); Hemoglobin 7.3 GM/DL (12.0-16.0); Immature Granulocytes % 1.2 %; Immature Granulocytes Absolute 0.13 #; Lymphocytes % 8.8 % (21.3-54.2); Mean Corpuscular HGB Conc 29.6 GM/DL (32-36); Mean Corpuscular Volume 91.1 FL (87-102); Mean Platelet Volume 9.2 FL (9.6-12.0); Monocytes # 1.4 10*3/uL (0.11-0.8); Monocytes % 13.2 % (1.7-12.7); Neutrophils % 76.1 % (38.7-73.9); Platelet Count 378 T/CUMM (130-400); Red Blood Count 2.71 MC/CUMM (3.8-5.5); Red Cell Distribution Width 18.3 % (9.3-17.3); White Blood Count 10.9 T/CUMM (4-12)
[2022-02-08 06:19] LABS: Hypochromia Slight; Lymphocytes 10 % (20-55); Platelet Estimate Adequate; Total Cells Counted 100
[2022-02-08 06:24] LABS: Alanine Aminotransferase < 6 U/L (13-56); Albumin 1.3 G/DL (3.4-5.0); Alkaline Phosphatase 118 U/L (45-117); Aspartate Amino Transferase 23 U/L (0-37); Blood Urea Nitrogen 23 MG/DL (7-18); Calcium 8.3 MG/DL (8.5-10.1); Carbon Dioxide 19 MMOL/L (21-32); Chloride 111 MMOL/L (98-107); Glucose 85 MG/DL (74-106); Osmolality,Calculated 279.5 MOS/KG (273-304); Potassium 4.4 MMOL/L (3.5-5.1); Sodium 139 MMOL/L (136-145); Total Protein 5.5 G/DL (6.4-8.2)
[2022-02-08] MEDS: CHOLECALCIFEROL 400 UNIT TABLET PO SCH (08:20)
[2022-02-08] MEDS: DEXTROSE 5% 1,000 ML IV SCH ×2 (11:47→18:24)
[2022-02-08] MEDS: HYDROmorphone 1 MG/1 ML SYRINGE IV PRN ×3 (11:48→21:02)
[2022-02-09] MEDS: HYDROmorphone 1 MG/1 ML SYRINGE IV PRN ×5 (01:30→23:24)
[2022-02-09 06:19] LABS: Basophils % 0.2 % (0.0-0.8); Eosinophils % 0.4 % (0.00-10.9); Hematocrit 24.6 VOL% (35.7-47.0); Hemoglobin 7.3 GM/DL (12.0-16.0); Immature Granulocytes % 1.1 %; Immature Granulocytes Absolute 0.12 #; Lymphocytes # 0.9 10*3/uL (1.4-4.0); Lymphocytes % 7.8 % (21.3-54.2); Mean Corpuscular HGB Conc 29.7 GM/DL (32-36); Mean Corpuscular Volume 90.4 FL (87-102); Mean Platelet Volume 9.3 FL (9.6-12.0); Monocytes # 1.5 10*3/uL (0.11-0.8); Monocytes % 14.2 % (1.7-12.7); Neutrophils % 76.3 % (38.7-73.9); Platelet Count 393 T/CUMM (130-400); Red Blood Count 2.72 MC/CUMM (3.8-5.5); Red Cell Distribution Width 17.9 % (9.3-17.3); White Blood Count 10.8 T/CUMM (4-12)
[2022-02-09 06:22] LABS: Calcium 7.9 MG/DL (8.5-10.1); Osmolality,Calculated 270.1 MOS/KG (273-304); Potassium 3.9 MMOL/L (3.5-5.1)
[2022-02-09] MEDS: CHOLECALCIFEROL 400 UNIT TABLET PO SCH (09:39)
[2022-02-09] MEDS: DEXTROSE 5% 1,000 ML IV SCH (17:31)
[2022-02-10] MEDS: HYDROmorphone 1 MG/1 ML SYRINGE IV PRN (04:06)
[2022-02-10 07:51] VITALS: BP 116/64
[2022-02-10] MEDS: CHOLECALCIFEROL 400 UNIT TABLET PO SCH (09:08)
[2022-02-10] MEDS: DEXTROSE 5% 1,000 ML IV SCH (09:09)
== END 2022-02-10 12:38 | disposition home or self-care (01) | DRG 357 ==
LOC: N.ED 17:07 → N.EDINP 23:52 → SUATTDRO 23:52 → N.EDINP 02-01 14:10 → N.5E 02-01 14:47
PROVIDERS: ADMIT Internal Medicine; ATTEND Internal Medicine